=== PATIENT | female | born 1990 | race Caucasian/White ===

== ENCOUNTER 2024-08-31 21:25 | Emergency (ER) | payer SELFPAY ==
[~2024-08-31] VITALS: Ht 160 cm; Wt 54.4 kg
[2024-08-31 21:57] VITALS: BP 107/69; TEMP 98.4
[2024-08-31 23:28] VITALS: O2SAT 98
== END 2024-08-31 23:28 | disposition home or self-care (01) ==
LOC: ER 21:29
DX: J06.9 Acute upper respiratory infection, unspecified (principal); M94.0 Chondrocostal junction syndrome [Tietze]; B97.89 Other viral agents as the cause of diseases classified elsewhere; Z88.2 Allergy status to sulfonamides; Z88.0 Allergy status to penicillin
CPT/HCPCS: 71045-TC